=== PATIENT | male | born 1955 | race Caucasian/White ===

== ENCOUNTER 2023-07-02 07:32 | Day surgery (SDC) | payer BC, MEDICARE ==
[~2023-07-02] VITALS: Ht 170.2 cm; Wt 73.4 kg
[2023-07-02] VITALS (8 sets, daily range): BP systolic 129–169; BP diastolic 73–96; PULSE 59–74; RESP 10–16; TEMP 97.6; O2SAT 96–100
[~2023-07-02 07:32] MED LIST: LIDOcaine 1% w/EPI 1:100,000 inj. MDV 50 ML VIAL ONE; NO HOME MEDS; cocaine 4% topical solution 4ml bottle ONE; epiNEPHrine 1 mg/ml 30ml MDV ONE; famotidine 20mg tablet PO ONE; mupirocin 2% ointment 22GM ONE; oxymetazoline 15 ML nasal spray NS ONE; ringers solution, lacted 1,000 ML IV SCH; tranexamic acid 100mg/ml inj. ONE; tranexamic acid inj. 1,000 MG in normal saline IV soln 100ML IV ONE
[2023-07-02] MEDS ORDERED: sevoflurane 250ml liquid IH ONE (09:53)
[2023-07-02] MEDS ORDERED: fentaNYL/PF 50MCG/1 ML 2ML syringe ONE (09:58)
[2023-07-02] MEDS ORDERED: midazolam 1 mg/ML 2ml injection ONE (09:59)
[2023-07-02] MEDS ORDERED: ceFAZolin 1000mg inj ONE ×2 (10:09)
[2023-07-02] MEDS ORDERED: dexamethasone sod phosphate 4mg/ml inj. ONE (10:10)
[2023-07-02] MEDS ORDERED: propofol inj 20 ML IV ONE (10:10)
[2023-07-02] MEDS ORDERED: morphine 2 MG/ML inj. syringe IV PRN (10:45)
[2023-07-02] MEDS ORDERED: ringers solution, lacted 1,000 ML IV SCH (10:45)
[2023-07-02] MEDS ORDERED: meperidine/PF 25mg/ml syringe IV PRN ×3 (10:45)
[2023-07-02] MEDS ORDERED: labetalol 20mg/4ml (5mg/ml) syringe IV PRN (10:45)
[2023-07-02] MEDS ORDERED: morphine 4 MG/ML inj SYRINge IV PRN (10:45)
[2023-07-02] MEDS ORDERED: proCHLORperazine 10 MG/2 ml inj IV PRN (10:45)
[2023-07-02] MEDS ORDERED: ondansetron/PF 4mg/2ml inj IV PRN (10:45)
[2023-07-02] MEDS ORDERED: LIDOcaine 1% w/epiNEPHrine 1:200,000 30ml vial IJ ONE (11:27)
[2023-07-02] MEDS ORDERED: cocaine 4% topical solution 4ml bottle TP ONE (11:29)
[2023-07-02] MEDS ORDERED: mupirocin 2% cream 15gm TP ONE (11:29)
[2023-07-02] MEDS ORDERED: oxymetazoline 15 ML nasal spray NS ONE (11:30)
[2023-07-02] MEDS ORDERED: rocuronium 10mg/ml inj IV ONE (11:41)
[2023-07-02] MEDS ORDERED: ondansetron/PF 4mg/2ml inj ONE (11:42)
--- NOTE | 2023-07-02 12:05 | NUR ---
Received from OR via [facility], accompanied by Anesthesiologist Bobby and report given by Anesthesiolgist. Pt is sleepy, no s/sx of pain or discomfort. No bleeding around bilateral nares. 10L SM oxygenation 100%. HOB 45 degress. Will continue to monitor.
[2023-07-02] MEDS ORDERED: salt irrigation nasal spray 45 ML SPRAY NS SCH (13:00)
[2023-07-02] MEDS ORDERED: mupirocin 2% nasal ointment 1gm UD NS SCH (13:00)
--- NOTE | 2023-07-02 13:25 | NUR ---
DC instructions and irrigation tray, gauze, nasal slade, all sent home with patient. Explained to Theresa ex- and patient how to use supplies and medications according to dc orders. Pt was confused, which is his baseline mental status. He appeared a bit stressed with ex- present. Changed gauze under nose x1 d/t small amount red blood. Pt voided prior to leaving the unit, escorted via wheelchair and transported to private vehicle without incident.
== END 2023-07-02 12:05 | disposition home or self-care (01) ==
LOC: PAS 07:32
PROVIDERS: ATTEND Otolaryngology
DX: J34.2 Deviated nasal septum (principal); J34.3 Hypertrophy of nasal turbinates; J32.8 Other chronic sinusitis; J33.8 Other polyp of sinus; J44.9 Chronic obstructive pulmonary disease, unspecified; Z79.899 Other long term (current) drug therapy
CPT/HCPCS: 30140; 30520; 31259; 31267; 31276; 61782; 82948; 93005; A6402; J0171; J0690; J1100; J2250; J2405; J2704; J3010; J3490; J7030; J7050; J7120; Z7506; Z7508; Z7512; A4618; A6449; A7000

== ENCOUNTER 2025-06-10 13:04 | Emergency (ER) | payer BC ==
[~2025-06-10] VITALS: Ht 172.7 cm; Wt 80.0 kg
[~2025-06-10 13:04] MED LIST changes: -LIDOcaine 1% w/EPI 1:100,000 inj. MDV 50 ML VIAL ONE; -cocaine 4% topical solution 4ml bottle ONE; -epiNEPHrine 1 mg/ml 30ml MDV ONE; -famotidine 20mg tablet PO ONE; -mupirocin 2% ointment 22GM ONE; -oxymetazoline 15 ML nasal spray NS ONE; -ringers solution, lacted 1,000 ML IV SCH; -tranexamic acid 100mg/ml inj. ONE; -tranexamic acid inj. 1,000 MG in normal saline IV soln 100ML IV ONE
[2025-06-10 13:07] VITALS: TEMP 97.8
--- NOTE | 2025-06-10 13:14 | Physician Documentation ---
Addendum CHIEF COMPLAINT/HPI: The patient is a 70-year-old male with dementia who resides on the memory unit at [facility]. He has been reportedly coughing quite a bit over the past two months. 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 He reportedly had a coughing fit and passed out, striking his head on the edge of a cabinet. REVIEW OF SYSTEMS: Unable to obtain due to dementia. PHYSICAL EXAMINATION: Vitals and nursing note reviewed. Constitutional: General: Patient is awake, alert, oriented x 4 in no acute distress and well appearing. Speech is clear and lucid. Appearance: Normal appearance. Patient is not ill-appearing, toxic-appearing or diaphoretic. HENT: Head: Normocephalic, 1.5 cm non gaping laceration left frontal area. Mouth: Mucous membranes are moist. Pharynx: Oropharynx is clear. Eyes: General: No scleral icterus. Extraocular Movements: Extraocular movements intact. Pupils: Pupils are equal, round, and reactive to light. Neck: Supple, no Kernig or Brudzinski sign. Cardiovascular: Rate and Rhythm: Normal rate and regular rhythm. Heart sounds: No murmur heard. Pulmonary: Effort: No respiratory distress. Breath sounds: Bilateral rales and rhonchi Abdominal: General: There is no distension. Palpations: There is no fluid wave, hepatomegaly or mass. Tenderness: There is no abdominal tenderness. There is no guarding. Musculoskeletal: General: No swelling or deformity. Skin: Coloration: Skin is not jaundiced. Findings: No erythema or rash. Neurological: Mental Status: Patient is alert. MEDICAL DECISION MAKING: This 70-year-old man suffered a syncopal episode after coughing fit. He did strike his head sustaining a small laceration not requiring repair. CT scan of the head is negative for acute findings. His cough responded well to a DuoNeb treatment. His BNP is not significantly elevated. Chest x-ray is consistent with a viral illness (pulmonary vascular congestion is less likely given his relatively normal BNP and good response to DuoNeb). I am going to prescribe a course of prednisone and azithromycin and have him follow-up with his PCP. Departure Disposition: 01 HOME / SELF CARE / HOMELESS Impression: Primary Impression: Syncope Additional Impression: Cough Condition: Stable Additional Instructions: It is important to see your doctor or primary care provider. Emergency care may be incomplete without proper follow-up. Symptoms sometimes change or new symptoms might arise after you leave the emergency department. It is important that you call your doctor if you become worse in any way, or return to the emergency department. You are strongly urged to follow-up with your physician to assure complete and thorough care. Please call your doctor's office today, and informed them that you were seen in the emergency department, and that you need to be seen immediately for close follow-up. If you do not have a primary care doctor we encourage you to proactively seek a local physician for close follow-up. Consider local clinics, special care hospital, or local [facility]. Prior to discharge we spoke at length concerning symptoms that would merit reevaluation, but please return to the emergency department for any symptoms that are concerning to you, and we will be happy to continue your evaluation and treatment. Please note you can always return to the emergency department if you are having difficulty coordinating close follow-up. If medications were prescribed, you should fill them at your local pharmacy immediately and take only as prescribed. Bring your new medications to your doctors follow-up visit to discuss any changes that would be necessary. Please check [facility] for any results you did not receive in the Emergency Department: often we are unable to get all your tests back before you leave, and these tests need to be reviewed by your PCP and yourself. You can also call Medical Records if you are unable to access the internet to see [facility]. Return to the emergency department immediately for worsening chest pain, difficulty breathing, sweating, or other concerning emergent symptoms. Prescriptions Prednisone* (Prednisone*) 20 Mg Tablet 1 TAB PO Q12H for 5 Days, #10 TAB Prov: GUNJAN WALLS MD 06/10/25 Azithromycin (Zithromax) 250 Mg Tablet 1 TAB PO DAILY, #6 TAB azithromycin z pack as directed in packaging Prov: GUNJAN WALLS MD 06/10/25 Education Educated: Patient, Other Educated regarding: diagnosis, treatment, prognosis, need for follow up GUNJAN WALLS MD Jun 10, 2025 13:14
--- NOTE | 2025-06-10 14:29 | ELECTROCARDIOGRAPH REPORT ---
[facility] Test Date: 2025-06-10 Test Time: 14:27:26 Pat Name: MARIANA NARVAEZ Department: [facility]- Patient ID: [facility]-[id number] Room: Gender: M Revenue Liaison: : 1955 Requested By: GUNJAN WALLS Order Number: [id number] Reading MD: Measurements Intervals [place] Rate: 65 P: 34 WV: 133 QRS: -16 QRSD: 100 T: 29 QT: 415 QTc: 432 Interpretive Statements Sinus rhythm Probable left ventricular hypertrophy Please click the below link to view image of tracing.
[2025-06-10 14:34] LABS: MEAN PLATELET VOLUME 8.1 FL (7.4-10.4); RED CELL DISTRIBUTION WIDTH 13.9 % (11.5-14.5)
--- NOTE | 2025-06-10 14:38 | RADIOLOGY REPORT ---
CHEST RADIOGRAPH Indication: Cough Technique: Single frontal view of the chest was obtained COMPARISON: None FINDINGS: Lines and Tubes: None Lungs: Increased interstitial prominence. This may represent pulmonary vascular congestion and/or viral pneumonia. Pleura: No effusion. No pneumothorax. Cardiomediastinal contours: Unremarkable Bones: Unremarkable IMPRESSION: Increased interstitial prominence. This may represent pulmonary vascular congestion and/or viral pneumonia.
[2025-06-10 14:48] LABS: CREATININE 1.12 MG/DL (0.60-1.10); PRO BRAIN NATRIURETIC PEPTIDE 84 PG/ML (0-125); TOTAL CARBON DIOXIDE 33.4 MMOL/L (24-32); eCRCL 59 ML/MIN; eGFR 65 ML/MIN
[2025-06-10] MEDS: TETanus/Pertussis (Acell)/Diphther VAC/PF (Tdap-Adult) 0.5ml syringe IMVAC ONE (14:52)
[2025-06-10] MEDS: ipratropium/albuterol 3ml nebule NEB STA (15:02)
[2025-06-10 15:04] VITALS: PULSE 72; PULSE 77; RESP 18; RESP 21; O2SAT 97; O2SAT 99
--- NOTE | 2025-06-10 15:28 | RADIOLOGY REPORT ---
CLINICAL HISTORY: Trauma TECHNIQUE: Helical scanning was performed of the head from the skull base to the vertex. Multiplanar reconstructions were performed. This exam was performed according to our departmental dose optimization program. Up-to-date CT equipment and radiation dose reduction techniques are utilized as appropriate. CTDI 61 DLP 1092 COMPARISON: None FINDINGS: There is no evidence for acute intracranial hemorrhage, acute ischemic changes, mass, mass effect, or extra-axial fluid collection. There is no hydrocephalus or midline shift. There is no effacement of the cerebral sulci and basal subarachnoid cisterns. The laguerre-white matter differentiation is well maintained. There is moderate brain volume loss and mild chronic small vessel ischemic change. The imaged paranasal sinuses demonstrate [id number] left and mild right maxillary sinus mucosal thickening. IMPRESSION: NO ACUTE INTRACRANIAL ABNORMALITY SEEN.
[2025-06-10] MEDS ORDERED: PRED20TA PO (17:11)
[2025-06-10] MEDS ORDERED: AZIT-164 PO (17:11)
[2025-06-10 17:56] VITALS: BP 133/91; PULSE 79; RESP 16; O2SAT 98
== END 2025-06-10 18:45 | disposition home or self-care (01) ==
LOC: ER 13:05
DX: R05.9 Cough, unspecified (principal); R55 Syncope and collapse; R06.02 Shortness of breath; F03.90 Unspecified dementia, unspecified severity, without behavioral disturbance, psychotic disturbance, mood disturbance, and anxiety
CPT/HCPCS: 36415; 70450; 71045; 80048; 83735; 83880; 85025; 90471; 90715; 93005; 94640; 99285; J7512